=== PATIENT | female | born 1940 | race Caucasian/White ===

== ENCOUNTER → 2016-09-13 | Outpatient (CLI) | payer BC, MEDICARE ==
[~2016-09-13] MED LIST: ASPIRIN 32325 MG/TAB PO; ATIVAN 0.50.5 MG/TAB PO; ATIVAN 1MG T1 MG/TAB PO; BENADRYL25 M2 PO; CALCIUM 600600 M2 PO; COLACE 100100 MG/CAP PO; FISH OIL 1000MG1 CAP PO; K-PHOS ORIGINA500 MG PO; MYRBETR25MG PO; NEURONTIN300 MG/CAP PO; NORCO 325 MG-101 TAB PO; NORCO 325 MG-7.1 TAB PO; OXYCONTIN 20MG20 MG PO; PHENTERMINE15 MG PO; PRAVACHOL 40MG40 MG PO; ROBAXIN 75750 MG/TAB PO; ROXICODONE 55 MG/TAB PO; TOPROL XL 50MG50 MG PO; TOPROL XL100 MG PO; TYLENOL 325MG325 MG PO; VITAMIN D1000 IU PO
== END ==
LOC: COL.RAD 14:55
DX: M41.86 Other forms of scoliosis, lumbar region (principal); M47.896 Other spondylosis, lumbar region; M43.16 Spondylolisthesis, lumbar region; M48.06 Spinal stenosis, lumbar region; Z98.1 Arthrodesis status

== ENCOUNTER → 2016-12-15 | Outpatient (CLI) | payer BC, MEDICARE | LOC: COL.RAD 16:02 | DX: M43.16 Spondylolisthesis, lumbar region (principal); M41.86 Other forms of scoliosis, lumbar region; M47.896 Other spondylosis, lumbar region; Z98.1 Arthrodesis status ==

== ENCOUNTER → 2017-07-13 | Outpatient (CLI) | payer BC | LOC: COL.RAD 08:55 | DX: M19.012 Primary osteoarthritis, left shoulder (principal) | CPT/HCPCS: J3301; Q9967 ==

== ENCOUNTER → 2017-07-16 | Outpatient (CLI) | payer BC | LOC: COL.RAD 10:16 | DX: S33.140A Subluxation of L4/L5 lumbar vertebra, initial encounter (principal); M48.061 Spinal stenosis, lumbar region without neurogenic claudication; M47.816 Spondylosis without myelopathy or radiculopathy, lumbar region; S33.110A Subluxation of L1/L2 lumbar vertebra, initial encounter; Z98.1 Arthrodesis status ==

== ENCOUNTER → 2017-09-19 | Outpatient (CLI) | payer BC | LOC: MC.RAD 11:39 | DX: Z12.31 Encounter for screening mammogram for malignant neoplasm of breast (principal) ==

== ENCOUNTER 2017-10-12 08:14 | Day surgery (SDC) | payer BC ==
[~2017-10-12] VITALS: Ht 160 cm; Wt 73.0 kg
[~2017-10-12 08:14] MED LIST changes: -ATIVAN 0.50.5 MG/TAB PO
[2017-10-12] MEDS ORDERED: OXYCONTIN30 MG PO (08:48)
[2017-10-12] MEDS ORDERED: CEFACLOR250 MG PO (08:54)
[2017-10-12] MEDS ORDERED: ASPIRIN 32325 MG/TAB PO (09:21)
[2017-10-12] MEDS ORDERED: MIRALAX PA17 GM/Dose PO (09:22)
[2017-10-12 09:23] VITALS: BP 97/78; PULSE 95; TEMP 96.9
[2017-10-12 10:30] VITALS: BP 104/63; PULSE 77; TEMP 97.4
[2017-10-12 10:45] VITALS: BP 102/70; PULSE 84
[2017-10-12 11:00] VITALS: BP 114/47; PULSE 74
== END 2017-10-12 11:20 | disposition home or self-care (01) ==
LOC: SDCO 08:14
DX: Z12.11 Encounter for screening for malignant neoplasm of colon (principal); Z86.010 Personal history of colon polyps; D12.3 Benign neoplasm of transverse colon; K57.30 Diverticulosis of large intestine without perforation or abscess without bleeding; K64.2 Third degree hemorrhoids; I10 Essential (primary) hypertension; Z88.1 Allergy status to other antibiotic agents
CPT/HCPCS: J2250; J3010; J7030

== ENCOUNTER 2018-06-12 13:30 | Outpatient (RCR) | payer BC ==
[~2018-06-12 13:30] MED LIST changes: +CEFACLOR250 MG PO; +MIRALAX PA17 GM/Dose PO; +OXYCONTIN30 MG PO
[2018-06-13] MEDS ORDERED: MOBIC15 MG PO (07:50)
[2018-06-13] MEDS ORDERED: EPA FISH OIL1 SGL PO (07:50)
[2018-06-13] MEDS ORDERED: NATURAL MAGNES200 MG PO (07:51)
[2018-06-13] MEDS ORDERED: OSCAL 500 TAB500 MG PO (07:52)
[2018-06-14] MEDS ORDERED: KLOR-CON 1010 MEQ PO (07:35)
== END 2018-06-12 16:14 | disposition home or self-care (01) ==
LOC: WSPT 13:30
DX: M25.551 Pain in right hip (principal); M25.561 Pain in right knee

== ENCOUNTER → 2018-06-17 | Outpatient (REF) ==
[~2018-06-17] MED LIST changes: +EPA FISH OIL1 SGL PO; +KLOR-CON 1010 MEQ PO; +MOBIC15 MG PO; +NATURAL MAGNES200 MG PO; +OSCAL 500 TAB500 MG PO
[2018-06-17 17:17] LABS: COLLECTION METHOD CLEAN CATCH
[2018-06-17 17:30] LABS: BUDDING YEAST Present /hpf; PH 7 (5-8); SQUAMOUS EPITHELIAL 0-2 /hpf; URINE APPEARANCE Hazy; URINE BACTERIA Rare /hpf; URINE BILIRUBIN Negative (NEGATIVE); URINE BLOOD 2+ (NEGATIVE); URINE COLOR Straw; URINE GLUCOSE Negative (NEGATIVE); URINE KETONE Negative (NEGATIVE); URINE LEUKOCYTE ESTERASE 3+ (NEGATIVE); URINE NITRATE Negative (NEGATIVE); URINE PROTEIN(semi-quant) Negative (NEGATIVE); URINE RBC 0-2 /hpf; URINE UROBILINOGEN Negative (NEGATIVE); URINE WBC >50 /hpf
== END ==
LOC: ZCOL.LAB 17:15
PROVIDERS: Internal Medicine
DX: R50.9 Fever, unspecified (principal); R33.9 Retention of urine, unspecified; R30.0 Dysuria

== ENCOUNTER → 2018-11-20 | Outpatient (CLI) | payer BC | LOC: COL.RAD 10:28 | DX: M19.012 Primary osteoarthritis, left shoulder (principal) | CPT/HCPCS: J3301; Q9967 ==

== ENCOUNTER → 2019-01-24 | Outpatient (CLI) | payer BC | LOC: MC.RAD 13:45 | DX: Z12.31 Encounter for screening mammogram for malignant neoplasm of breast (principal) ==

== ENCOUNTER 2019-02-28 15:05 | Outpatient (CLI) | payer BC ==
[~2019-02-28] VITALS: Ht 160 cm; Wt 82.0 kg
[2019-02-28 15:54] VITALS: BP 111/69; PULSE 61; TEMP 98.8
[2019-02-28] MEDS ORDERED: NEURONTIN300 MG/CAP PO (16:32)
[2019-02-28] MEDS ORDERED: NORCO 325 MG-7.1 TAB PO (16:34)
[2019-02-28] MEDS ORDERED: TOPROL XL 50MG50 MG PO (16:36)
[2019-02-28] MEDS ORDERED: LEXAPRO20 MG PO (16:37)
== END 2019-02-28 17:20 | disposition home or self-care (01) ==
LOC: EUO 15:05
DX: M81.0 Age-related osteoporosis without current pathological fracture (principal)
CPT/HCPCS: J3489

== ENCOUNTER → 2019-08-20 | Outpatient (CLI) | payer MEDICARE, BC ==
[~2019-08-20] MED LIST changes: +LEXAPRO20 MG PO
== END ==
LOC: COL.VAS 08-18 09:00
DX: I73.9 Peripheral vascular disease, unspecified (principal)

== ENCOUNTER 2019-09-18 15:39 | Outpatient (CLI) | payer MEDICARE, BC ==
[~2019-09-18] VITALS: Ht 160 cm; Wt 82.8 kg
[2019-09-18 15:58] VITALS: BP 99/65; PULSE 60; TEMP 97.9
[2019-09-18] MEDS ORDERED: XTAMPZA ER9 MG PO (16:13)
--- NOTE | 2019-09-18 16:30 | NUR ---
Initial bladder scan showed 403ml, pt voided <100 cc into hat, and residual scan showed 15cc.
[2019-09-18 17:04] LABS: BASO % 0.3 % (0.0-2.0); EOS # 0.1 (0.0-0.7); EOS % 1.9 % (0-4.0); GRAN # 5.1 (1.4-6.5); GRAN % 69.1 % (42.2-75.2); HEMATOCRIT 39.2 % (37.0-47.0); HEMOGLOBIN 12.8 g/dl (12.5-16.0); LYMPH # 1.5 (1.2-3.4); LYMPH % 20.9 % (20.0-51.0); MEAN CELL VOLUME 96 fl (80.0-100.0); MEAN CORPUSCULAR HEMOGLOBIN 31 pg (27.0-31.0); MEAN CORPUSCULAR HGB CONC 33 g/dl (33.0-37.0); MEAN PLATELET VOLUME 9.7 fl (7.4-10.4); MONO # 0.6 (0.1-0.6); MONO % 7.7 % (1.7-9.3); PLATELET COUNT 247 K/mm3 (130-400); RED BLOOD COUNT 4.08 M/mm3 (4.10-5.30); REDCELL DISTRIBUTION WIDTH-CV 13.1 % (11.5-14.5)
[2019-09-18 17:20] LABS: CALCIUM 9.7 mg/dL (8.4-10.2); CREATININE, serum 0.75 (0.52-1.25); POTASSIUM 4.2 mmol/L (3.4-5.0)
== END 2019-09-18 18:03 | disposition home or self-care (01) ==
LOC: EUO 15:39
PROVIDERS: Family Medicine
DX: R10.32 Left lower quadrant pain (principal); R34 Anuria and oliguria

== ENCOUNTER → 2019-09-22 | Outpatient (CLI) | payer MEDICARE, BC ==
[~2019-09-22] MED LIST changes: +XTAMPZA ER9 MG PO
== END ==
LOC: COL.RAD 13:00
DX: M25.511 Pain in right shoulder (principal)
CPT/HCPCS: J3301; Q9967

== ENCOUNTER → 2020-03-01 | Outpatient (CLI) | payer MEDICARE, BC ==
[~2020-03-01] VITALS: Ht 160 cm; Wt 83.7 kg
[~2020-03-01] MED LIST changes: +XTAMPZA ER27 MG PO
[2020-03-01 13:15] VITALS: BP 138/86; PULSE 69; TEMP 98.2
--- NOTE | 2020-03-01 14:16 | NUR ---
Patient's infusion complete with no complications, IV access discontinued, and patient discharged at this time.
== END ==
LOC: EUO 13:00
DX: M81.0 Age-related osteoporosis without current pathological fracture (principal)
CPT/HCPCS: J3489

== ENCOUNTER 2020-06-16 15:52 | Observation (INO) | payer MEDICARE, BC ==
[~2020-06-16] VITALS: Ht 160 cm; Wt 80.6 kg
[~2020-06-16 15:52] MED LIST changes: +OMNICEF 300MG300 MG PO; +XANAX 0.5MG0.5 MG PO
[2020-06-16 16:51] LABS: BASO % 0.1 % (0.0-2.0); GRAN % 89.6 % (42.2-75.2); HEMATOCRIT 37.1 % (37.0-47.0); HEMOGLOBIN 12.3 g/dl (12.5-16.0); LYMPH # 0.6 (1.2-3.4); LYMPH % 4.6 % (20.0-51.0); MEAN CELL VOLUME 95 fl (80.0-100.0); MEAN CORPUSCULAR HEMOGLOBIN 32 pg (27.0-31.0); MEAN CORPUSCULAR HGB CONC 33 g/dl (33.0-37.0); MEAN PLATELET VOLUME 9.8 fl (7.4-10.4); MONO # 0.6 (0.1-0.6); MONO % 5.2 % (1.7-9.3); PLATELET COUNT 244 K/mm3 (130-400); REDCELL DISTRIBUTION WIDTH-CV 13.2 % (11.5-14.5)
[2020-06-16 16:59] LABS: ALBUMIN 4.1 gm/dL (3.5-5.0); BILIRUBIN,TOTAL 0.7 mg/dL (0.0-1.0); CALCIUM 8.6 mg/dL (8.4-10.2); CREATININE, serum 0.69 (0.52-1.25); POTASSIUM 3.8 mmol/L (3.4-5.0); TOTAL PROTEIN 6.8 gm/dL (6.4-8.2)
[2020-06-16 17:18] LABS: COLLECTION METHOD CATHETER
[2020-06-16 17:33] LABS: MUCOUS Present /lpf; PH 5 (5-8); SQUAMOUS EPITHELIAL 0-2 /hpf; URINE APPEARANCE Hazy; URINE BACTERIA None Seen /hpf; URINE BILIRUBIN Negative (NEGATIVE); URINE BLOOD 2+ (NEGATIVE); URINE COLOR Yellow; URINE GLUCOSE Negative (NEGATIVE); URINE KETONE Trace (NEGATIVE); URINE LEUKOCYTE ESTERASE Negative (NEGATIVE); URINE NITRATE Negative (NEGATIVE); URINE PROTEIN(semi-quant) Negative (NEGATIVE); URINE UROBILINOGEN Negative (NEGATIVE)
[2020-06-16] MEDS ORDERED: DESYREL 100MG100 MG PO (20:58)
[2020-06-16 21:03] VITALS: BP 104/60; PULSE 69; TEMP 98.1
--- NOTE | 2020-06-16 21:18 | NUR ---
Arrived to medical floor. Assessment complete. Lungs clear. Heart sounds normal. Bowels active x4. Pulses present throughout. No edema noted. INT right forearm without complications at this time. Erythema to buttocks blanchable. Reports left hip pain. Patient alert and partially orientated-unable to state month and day. Orientate to medical floor. Fall precautions in place. Denies needs. Call light in reach.
[2020-06-16 21:34] VITALS: BP 99/63; PULSE 67
[2020-06-16 21:36] VITALS: BP 113/69; PULSE 74
[2020-06-16 21:37] VITALS: BP 105/61; PULSE 77
[2020-06-16 22:01] LABS: BASO % 0.2 % (0.0-2.0); GRAN # 9.3 (1.4-6.5); GRAN % 83.9 % (42.2-75.2); HEMOGLOBIN 11.6 g/dl (12.5-16.0); LYMPH # 1.1 (1.2-3.4); LYMPH % 9.5 % (20.0-51.0); MEAN CELL VOLUME 96 fl (80.0-100.0); MEAN CORPUSCULAR HEMOGLOBIN 32 pg (27.0-31.0); MEAN CORPUSCULAR HGB CONC 33 g/dl (33.0-37.0); MEAN PLATELET VOLUME 9.9 fl (7.4-10.4); MONO # 0.7 (0.1-0.6); MONO % 6.1 % (1.7-9.3); PLATELET COUNT 231 K/mm3 (130-400); RED BLOOD COUNT 3.66 M/mm3 (4.10-5.30); REDCELL DISTRIBUTION WIDTH-CV 13.3 % (11.5-14.5)
[2020-06-16 22:04] LABS: HEMATOCRIT 35.2 % (37.0-47.0)
[2020-06-16 22:26] LABS: MAGNESIUM 2.3 mg/dL (1.6-2.3)
[2020-06-16] MEDS ORDERED: LOPRESSOR 550 MG/TAB PO (22:50)
[2020-06-16] MEDS ORDERED: VITAMIN D31000 I1 PO (22:54)
[2020-06-16] MEDS ORDERED: XANAX 0.5MG0.5 MG PO (22:57)
[2020-06-16 22:58] LABS: TSH w REFLEX 0.697 uIU/mL (0.465-4.680)
[2020-06-16 23:11] VITALS: BP 105/70; PULSE 64; TEMP 99
--- NOTE | 2020-06-16 23:31 | NUR ---
Rated pain 6/10 in hips/back. Provided with PRN mobic per Hayley GOULD
[2020-06-17] VITALS (7 sets, daily range): BP systolic 116–149; BP diastolic 66–78; PULSE 53–96; TEMP 97.7–99
--- NOTE | 2020-06-17 02:12 | NUR ---
Up to restroom and returned to bed. Given PRN tylenol. Denies other needs. Call light in reach.
[2020-06-17 03:45] LABS: ANION GAP 5 mmol/L (7-16); BLOOD UREA NITROGEN 16 mg/dL (7-17); CALCIUM 7.8 mg/dL (8.4-10.2); CARBON DIOXIDE 25 mmol/L (22-30); CHLORIDE 111 mmol/L (98-107); CREATININE, serum 0.46 (0.52-1.25); GLUCOSE 98 mg/dL (74-106); POTASSIUM 3.6 mmol/L (3.4-5.0); SODIUM 141 mmol/L (137-145)
[2020-06-17 03:58] LABS: TROPONIN-I 6 HR POST INITIAL < 0.012 ng/mL (0.000-0.034)
--- NOTE | 2020-06-17 06:41 | NUR ---
Patient required tylenol and mobic for pain throughout night. Otherwise uneventful night. Resting in bed this AM. Call light in reach.
--- NOTE | 2020-06-17 07:15 | NUR ---
Report given to LENIN Martinez
--- NOTE | 2020-06-17 09:27 | NUR ---
Initial visit; "Huong" stated that she is so glad to have a Adding Machine Operator visit and spoke joyfully of attending zoroastrianism. Huong was happy to have prayer and visit with Adding Machine Operator and is hopeful to get her health issues taken care of so she can move back home to [place] where her son lives.
--- NOTE | 2020-06-17 09:59 | NUR ---
Pt awake and alert this morning, sitting in recliner, had some C/O pain this morning, medications were given for relief with good results, left Pt call light in reach.
--- NOTE | 2020-06-17 13:18 | NUR ---
ALLISON met with the patient to discuss discharge plan. The patient lives alone in [place]. She has three children: Jason (ph#[phone]), Deejay, and Theron. They all live in [place]. She states that she has some friend support in town. She reports independence with ADLs and has a cane and walker. The patient recently discharged from the hospital, 06/07, and returned home with [facility] for senior living/PT/OT. The patient states that she asked them for a bath aide. She states she feels more comfortable with someone just being there when she bathes, in case she does need anything. The patient's PCP is Dr. Celia White and she receives her medications at [facility]. She reports no difficulties obtaining her meds. The patient does not have a DPOA-HC in EMR, but she states that she does have one completed and that her son, Jason, is her DPOA-HC. The patient states that she is planning on moving to [place] within the next six months to live near her children. She states that Jason was planning on coming up here soon to help pack her things. PT is recommending post-acute rehab. SW discussed this with the patient. The patient states that she feels okay to return back home with home health, as long as her pain medications get figured out. The patient is observation status. The patient reports that she would be interested in rehab at [facility], if Medicare would waive the 3 midnight rule and her stay be covered there. Otherwise, she states that she would not be able to afford to private pay at a SNF and would just want to return home with [facility]. She states that she would be able to private pay for some additional services through [facility] and could get some support from her yazdanism friends. ALLISON contacted and faxed a referral to Tawanna at [facility]. ALLISON contacted and faxed updates to Tania at [facility]. SW attempted to contact the patient's son, Jason. ALLISON left him a voicemail. SW awaiting screen.
--- NOTE | 2020-06-17 13:55 | NUR ---
Primary nurse was assisted with [id number] patient care by [employer] student Anusha Carmichael and [employer] instructor Leona Alonso RN-.
--- NOTE | 2020-06-17 15:17 | NUR ---
The patient's son, Jason, returned ALLISON's phone call. SW reviewed PT's recommendtion and the patient's d/c plan. Jason reports that the patient will not be moving to [place] for another six months. He states that he is supportive of what ever decision the patient makes. Tawanna, at [facility], reports that they would not be able to justify waiving the Medicare three midnight rule and that the patient would have to private pay. It would cost $338 a day. ALLISON met with the patient to inform. The patient reports that she may be interested in private paying at [facility] for a few days, but would like to think about this tonight and speak to her son about it. She asked that SW follow up with her in the morning.
--- NOTE | 2020-06-17 18:50 | NUR ---
Pt resting in the room, has been oriented today, has had C/O pain during the day especially when Pt ambulating, no other issues noted. VS have remained stable.
--- NOTE | 2020-06-17 20:45 | NUR ---
Resting in bed. Assessment complete. Lungs clear. Heart sounds normal. Bowels active x4. Pulses present throughout. No edema noted. INT right forearm flushed without complications. Reports 8/10 pain. Given schedule pain medications. Denies other needs at this time. Call light in reach.
--- NOTE | 2020-06-18 00:10 | NUR ---
Up to restroom and returned to bed. Denies needs. Call light in reach.
--- NOTE | 2020-06-18 01:17 | NUR ---
Patient given mobic for 8/10 left hip pain. Denies needs. Call light in reach.
--- NOTE | 2020-06-18 03:11 | NUR ---
Up to restroom and returned to bed. Left hip pain with ambulation. Relieved once in bed. Denies needs. Call light in reach.
[2020-06-18 03:33] VITALS: BP 150/80; PULSE 58; TEMP 98.8
--- NOTE | 2020-06-18 05:05 | NUR ---
Patient required mobic for left hip pain along with schedule medications throughout night. Up to restroom this AM. Call light in reach.
--- NOTE | 2020-06-18 07:38 | NUR ---
Report given to LENIN Martinez
[2020-06-18 08:09] LABS: BASO % 0.3 % (0.0-2.0); EOS % 0.4 % (0-4.0); GRAN # 5.8 (1.4-6.5); GRAN % 79.2 % (42.2-75.2); LYMPH # 0.9 (1.2-3.4); LYMPH % 12.7 % (20.0-51.0); MEAN CELL VOLUME 95 fl (80.0-100.0); MEAN CORPUSCULAR HEMOGLOBIN 31 pg (27.0-31.0); MEAN CORPUSCULAR HGB CONC 33 g/dl (33.0-37.0); MEAN PLATELET VOLUME 10.3 fl (7.4-10.4); MONO # 0.5 (0.1-0.6); MONO % 7.1 % (1.7-9.3); PLATELET COUNT 243 K/mm3 (130-400); RED BLOOD COUNT 3.82 M/mm3 (4.10-5.30); REDCELL DISTRIBUTION WIDTH-CV 13.2 % (11.5-14.5)
[2020-06-18 08:13] LABS: HEMATOCRIT 36.4 % (37.0-47.0)
[2020-06-18 08:27] LABS: CALCIUM 8.9 mg/dL (8.4-10.2); CREATININE, serum 0.45 (0.52-1.25); POTASSIUM 3.3 mmol/L (3.4-5.0)
[2020-06-18 09:09] VITALS: BP 142/94; PULSE 67; TEMP 98.5
[2020-06-18] MEDS ORDERED: TOPROL XL 25MG25 MG PO (10:00)
[2020-06-18] MEDS ORDERED: DESYREL 50MG50 MG PO (10:01)
--- NOTE | 2020-06-18 10:48 | NUR ---
Pt awake and alert this morning, has some C/O pain, shift assessments complete, left Pt call light in reach, bed in lowest position.
--- NOTE | 2020-06-18 10:53 | NUR ---
PT worked with the patient this morning and state that she is doing a lot better with her mobility and recommend home with friend assistance and home health. ALLISON then met with the patient to follow up on preference for private pay SNF vs home health. The patient reports that her friend, Cristal, who is a retired RN, is going to stay with her for a few days when she discharges. She would like to return home with home health. ALLISON attempted to contact the patient's son, Jason, to update. ALLISON left him a voicemail. The patient is to discharge back home today, 06/18, with home health services for half-way/PT/OT through [facility]. ALLISON notified and faxed the patient's d/c orders to Tania at [facility]. No additional needs at this time.
--- NOTE | 2020-06-18 13:34 | NUR ---
Primary nurse was assisted with [id number] patient care by [employer] student Anusha Carmichael and [employer] instructor Leona Alonso RN-.
--- NOTE | 2020-06-18 14:30 | NUR ---
Pt dischargefd to home, discussed discharge packet with Pt, answered questions. Pt escorted to entrance by PCT, Pt left with friend via private auto.
== END 2020-06-18 14:30 | disposition home or self-care (01) ==
LOC: COL.ER 15:52 → SURG 18:27 → MEDICAL 18:30
PROVIDERS: Emergency Medicine; Nurse Practitioner Family; ADMIT Student in an Organized Health Care Education/Training Program
DX: R41.82 Altered mental status, unspecified (principal); I10 Essential (primary) hypertension; E78.5 Hyperlipidemia, unspecified; F41.9 Anxiety disorder, unspecified; G89.29 Other chronic pain; G62.9 Polyneuropathy, unspecified; M81.0 Age-related osteoporosis without current pathological fracture; R55 Syncope and collapse; G93.40 Encephalopathy, unspecified; R65.10 Systemic inflammatory response syndrome (SIRS) of non-infectious origin without acute organ dysfunction; I95.9 Hypotension, unspecified; G47.00 Insomnia, unspecified; M19.90 Unspecified osteoarthritis, unspecified site; F32.9 Major depressive disorder, single episode, unspecified; Z88.1 Allergy status to other antibiotic agents; Z88.8 Allergy status to other drugs, medicaments and biological substances
CPT/HCPCS: 99233-AI; G0378; J1650; J7030